=== PATIENT | male | born 1995 | race Caucasian/White ===

== ENCOUNTER → 2020-12-19 | Outpatient (CLI) | payer OTHER ==
[~2020-12-19] MED LIST: ACET500 PO; BACL10 PO; DIAZEPAM5 MG PO; FOLI1 PO; IBUPROFEN IB200 MG PO; ONDA4 PO; VITAMIN D5000 UNIT PO; Vitamin B Comple1 EA PO
== END | disposition home or self-care (01) ==
LOC: LAB SHORT 12:45
DX: K50.019 Crohn's disease of small intestine with unspecified complications (principal)
CPT/HCPCS: 83993

== ENCOUNTER → 2021-05-11 | Outpatient (CLI) | payer OTHER | END | disposition home or self-care (01) | LOC: LAB SHORT 03:00 → LAB FUT 04-14 13:20 | DX: N20.1 Calculus of ureter (principal) | CPT/HCPCS: 81050 ==

== ENCOUNTER → 2021-10-30 | Outpatient (CLI) | payer OTHER ==
[2021-10-30 19:14] LABS: BASOPHILS ABSOLUTE AUTO 0.05 K/mm3 (0.00-0.23); BASOPHILS PERCENT AUTO 1 % (0-2); EOSINOPHILS ABSOLUTE AUTO 0.23 K/mm3 (0.00-0.68); EOSINOPHILS PERCENT AUTO 3 % (0-6); Hematocrit 37.3 % (37.0-53.0); Hemoglobin 13.1 g/dL (13.5-17.5); IMMATURE GRAN ABSOLUTE AUTO 0.03 K/mm3 (0.00-0.10); IMMATURE GRAN PERCENT AUTO 0 % (0-1); LYMPHOCYTES ABSOLUTE AUTO 0.94 K/mm3 (0.84-5.20); LYMPHOCYTES PERCENT AUTO 11 % (21-46); MONOCYTES ABSOLUTE AUTO 0.55 K/mm3 (0.16-1.47); MONOCYTES PERCENT AUTO 6 % (4-13); Mean Corpuscular HGB 34.2 pg (26.0-34.0); Mean Corpuscular HGB Conc 35.1 g/dL (31.5-36.5); Mean Corpuscular Volume 97 fL (80-100); Mean Platelet Volume 11.1 fL (9.1-12.4); NEUTROPHILS ABSOLUTE AUTO 7.01 K/mm3 (1.96-9.15); NEUTROPHILS PERCENT AUTO 80 % (41-73); Platelet Count 341 K/mm3 (150-400); RDW Coefficient Variation 17.5 % (11.7-14.2); RDW Standard Deviation 62.4 fL (35.1-46.3); Red Blood Cell Count 3.83 M/mm3 (4.30-5.90); White Blood Cell Count 8.81 K/mm3 (4.00-11.30)
== END | disposition home or self-care (01) ==
LOC: LAB SHORT 16:18
PROVIDERS: Internal Medicine Gastroenterology
DX: K50.019 Crohn's disease of small intestine with unspecified complications (principal); K50.118 Crohn's disease of large intestine with other complication; Z79.899 Other long term (current) drug therapy
CPT/HCPCS: 85025

== ENCOUNTER → 2021-11-03 | Outpatient (CLI) | payer OTHER | END | disposition home or self-care (01) | LOC: LAB SHORT 18:47 | DX: R30.9 Painful micturition, unspecified (principal) | CPT/HCPCS: 87086 ==

== ENCOUNTER 2024-08-15 10:00 | Day surgery (SDC) | payer OTHER ==
[~2024-08-15] VITALS: Ht 177.8 cm; Wt 72.0 kg
[~2024-08-15 10:00] MED LIST changes: +AZAT50; +Acerola C500 MG; +CENTRUM SILVER1 EAC2; +IRON18 MG; +Lactated Ringer's 1,000 ML IV ONE; +OMEGA-3 + VITA200 ML; +propofoL 40 ML IV ONE
[2024-08-15] MEDS ORDERED: IMURAN50 MG PO (10:32)
[2024-08-15] MEDS ORDERED: RENFLEXIS100 MG IV (10:33)
[2024-08-15] MEDS ORDERED: Lactated Ringer's 1,000 ML IV ONE (10:37)
[2024-08-15 12:40] VITALS: BP 110/72
== END 2024-08-15 12:30 | disposition home or self-care (01) ==
LOC: ORSCSDS 10:00
PROVIDERS: Internal Medicine Gastroenterology
PROC: 0DBP8ZX Excision of Rectum, Via Natural or Artificial Opening Endoscopic, Diagnostic (ICD-10-PCS; principal; 2024-08-15 11:30)
PROC: 0DJD8ZZ Inspection of Lower Intestinal Tract, Via Natural or Artificial Opening Endoscopic (ICD-10-PCS; principal; 2024-08-15 11:30)
PROC: 0DBE8ZX Excision of Large Intestine, Via Natural or Artificial Opening Endoscopic, Diagnostic (ICD-10-PCS; principal; 2024-08-15 11:30)
DX: K50.90 Crohn's disease, unspecified, without complications (principal); K62.1 Rectal polyp; F84.5 Asperger's syndrome; M45.9 Ankylosing spondylitis of unspecified sites in spine; E80.4 Gilbert syndrome; Z79.899 Other long term (current) drug therapy
CPT/HCPCS: 88305; J2704; J7120

== ENCOUNTER → 2024-10-12 | Outpatient (CLI) | payer OTHER ==
[~2024-10-12] MED LIST changes: +IMURAN50 MG PO; -Lactated Ringer's 1,000 ML IV ONE; +RENFLEXIS100 MG IV; -propofoL 40 ML IV ONE
[2024-10-15 21:21] LABS: CALPROTECTIN,FECAL 46 ug/g (<=49)
== END ==
LOC: LAB 14:55 → LAB SHORT 14:55
PROVIDERS: Physician Assistant Medical
DX: K50.019 Crohn's disease of small intestine with unspecified complications (principal)
CPT/HCPCS: 83993